=== PATIENT | male | born 1960 | race African-American/Black ===

== ENCOUNTER 2017-07-28 07:45 | Emergency (ER) | payer OTHER ==
[2017-07-28] MEDS: LIDOCAINE WITH 8.4% SOD BICARB 3 ML DISP.SYRIN. IJ (08:35)
[2017-07-28] MEDS: DIPHTH,PERTUSS(ACELL),TET TOX 0.5 ML DISP.SYRIN. VAX IM (08:37)
== END 2017-07-28 09:12 | disposition home or self-care (01) ==
LOC: ER 07:45
DX: S01.112A Laceration without foreign body of left eyelid and periocular area, initial encounter (principal); S16.1XXA Strain of muscle, fascia and tendon at neck level, initial encounter; S00.03XA Contusion of scalp, initial encounter; W07.XXXA Fall from chair, initial encounter; Y93.89 Activity, other specified; Y99.8 Other external cause status; Y92.89 Other specified places as the place of occurrence of the external cause
CPT/HCPCS: 12013; 70450; 72125; 90471; 90715; 99284-25